=== PATIENT | male | born 1960 | race Caucasian/White ===

== ENCOUNTER 2020-08-28 11:22 | Observation (INO) | payer OTHER ==
[~2020-08-28] VITALS: Ht 180.3 cm; Wt 79.4 kg
[2020-08-28] MEDS ORDERED: ASPIRIN 325 MG TAB PO ONE (12:15)
[2020-08-28] MEDS ORDERED: ASPIRIN 81 MG CHEW TAB PO ONE (12:45)
[2020-08-28] MEDS ORDERED: GLYBURIDE-METF1 EACH PO (13:04)
[2020-08-28] MEDS ORDERED: ROSUVASTATIN CA10 MG PO (13:04)
[2020-08-28] MEDS ORDERED: REXULTI2 MG PO (13:04)
[2020-08-28] MEDS ORDERED: DEXTROAMP-AMPHE30 MG PO (13:04)
[2020-08-28] MEDS ORDERED: FLUOXETINE HCL40 MG PO (13:04)
[2020-08-28] MEDS ORDERED: TESSALON PERLE100 MG PO (13:18)
[2020-08-28] MEDS: FAMOTIDINE 20 MG TAB PO SCH ×2 (14:00→23:30)
[2020-08-28 14:50] VITALS: BP 134/80
[2020-08-28 14:56] VITALS: BP 134/80
[2020-08-28 15:39] LABS: CREATINE KINASE MB 7.3 ng/mL (0-5.0)
[2020-08-28 16:04] VITALS: BP 134/80
[2020-08-28 20:00] VITALS: BP 104/61
[2020-08-28 21:20] VITALS: BP 104/61
[2020-08-28 23:28] LABS: CREATINE KINASE MB 7.6 ng/mL (0-5.0)
[2020-08-29] VITALS (24 sets, daily range): BP systolic 108–139; BP diastolic 65–93
[2020-08-29] MEDS ORDERED: POLYETHYLENE GLYCOL 3350 17 GM PACK PO PRN
[2020-08-29] MEDS ORDERED: MELATONIN 5 MG TABLET PO PRN
[2020-08-29] MEDS ORDERED: ALBUTEROL/IPRATROPIUM 3 ML NEB NEB PRN
[2020-08-29] MEDS ORDERED: GUAIFENESIN/CODEINE 10 ML CUP PO PRN
[2020-08-29] MEDS ORDERED: POTASSIUM CHLORIDE 20 MEQ TAB CR PO PRN
[2020-08-29] MEDS ORDERED: TRAMADOL HCL 50 MG TAB PO PRN
[2020-08-29] MEDS ORDERED: ONDANSETRON HCL INJ 2MG/ML 2ML 2 MG/ML VIAL IV PRN
[2020-08-29] MEDS ORDERED: DOCUSATE SODIUM 100 MG CAP PO PRN
[2020-08-29] MEDS ORDERED: ACETAMINOPHEN 325 MG TAB PO PRN
[2020-08-29] MEDS ORDERED: HYDRALAZINE HCL 20 MG/ML VIAL IV PRN
[2020-08-29 07:04] LABS: BASOPHILS % 0.5 % (0.0-1.0); EOSINOPHILS # (AUTO) 0.1 (0.0-0.4); EOSINOPHILS % 1.5 % (0.0-6.0); HEMATOCRIT 40.4 % (38.2-49.6); HEMOGLOBIN 13.3 g/dL (14.0-18.0); LYMPHOCYTES # (AUTO) 2.1 (1.0-3.2); LYMPHOCYTES % 25.9 % (18.0-39.1); MEAN CORPUSCULAR HEMOGLOBIN 28.9 pg (28-32); MEAN CORPUSCULAR HGB CONC 32.9 g/dL (31-35); MEAN CORPUSCULAR VOLUME 87.8 fL (81-99); MONOCYTES # (AUTO) 0.8 (0.2-0.8); MONOCYTES % 9.6 % (4.4-11.3); NEUTROPHILS % 62.1 % (38.7-80.0); PLATELET COUNT 331 x10e3/uL (140-360); RED CELL DISTRIBUTION WIDTH 13.6 % (11.7-14.4)
[2020-08-29 07:22] LABS: ALANINE AMINOTRANSFERASE 24 IU/L (0-55); ALBUMIN 3.7 g/dL (3.5-5.0); ALBUMIN/GLOBULIN RATIO 1.1 (0.8-2.0); ALKALINE PHOSPHATASE 77 IU/L (40-150); ANION GAP 11.5 mmol/L (8-16); BLOOD UREA NITROGEN 12 mg/dL (7-26); BUN/CREATININE RATIO 14 (6-25); CALCIUM 8.7 mg/dL (8.4-10.2); CARBON DIOXIDE 26 mmol/L (22-29); CHLORIDE 104 mmol/L (98-107); CREATININE, SERUM 0.88 mg/dL (0.72-1.25); EST GLOMERULAR FILTRATION RATE > 60 ML/MIN (60-); GLUCOSE 111 mg/dL (74-118); POTASSIUM 4.5 mmol/L (3.5-5.1); SODIUM 137 mmol/L (136-145)
[2020-08-29 07:48] LABS: CHOL/HDL RATIO 5.2 (3.9-4.7); THYROID STIMULATING HORMONE 0.591 uIU/mL (0.350-4.940)
[2020-08-29] MEDS ORDERED: REGADENOSON 0.4 MG/5 ML SYR IV ONE (08:30)
[2020-08-29] MEDS ORDERED: ASPIRIN 325 MG TAB EC PO SCH ×2 (09:00)
[2020-08-29] MEDS: FLUOXETINE HCL 20 MG CAP PO SCH (09:00)
[2020-08-29] MEDS ORDERED: D AMPHET PO SCH (09:00)
[2020-08-29] MEDS: ASPIRIN 81 MG ENTERIC COATED PO SCH (09:00)
[2020-08-29] MEDS ORDERED: AMPHET ASP PO SCH (09:00)
[2020-08-29] MEDS ORDERED: AMPHET PO SCH (09:00)
[2020-08-29] MEDS ORDERED: [UNRECOGNIZED DRUG - OTHER] PO SCH (09:00)
[2020-08-29] MEDS ORDERED: MIDAZOLAM HCL 2 MG/2 ML VIAL ONE (11:22)
[2020-08-29] MEDS ORDERED: HEPARIN SOD/SOD CHLORIDE 2,000 ML ONE (11:23)
[2020-08-29] MEDS ORDERED: SODIUM CHLORIDE 0.9% 1000ML 1,000 ML ONE (11:23)
[2020-08-29] MEDS ORDERED: IOPAMIDOL 370 MG/ML 200 ML INFUS..BTL INJ ONE ×2 (11:23→15:07)
[2020-08-29] MEDS ORDERED: LIDOCAINE HCL 2% LOCAL 20 ML VIAL ONE (11:23)
[2020-08-29] MEDS ORDERED: FENTANYL CITRATE/PF 100MCG/2 ML INJ ONE (11:23)
[2020-08-29] MEDS: FAMOTIDINE 20 MG TAB PO SCH ×2 (12:45→23:35)
[2020-08-29] MEDS ORDERED: DEXTROSE 50% SYRINGE 50 ML IV PRN ×2 (13:15)
[2020-08-29] MEDS ORDERED: TICAGRELOR 90 MG TABLET ONE (15:41)
[2020-08-29] MEDS ORDERED: ASPIRIN 325 MG TAB ONE (15:41)
[2020-08-29] MEDS: INSULIN LISPRO 100 UNIT/1 ML 3ML VIAL SQ SCH ×2 (16:30→20:48)
[2020-08-29] MEDS ORDERED: ENOXAPARIN SOD INJ 40 MG/0.4 ML SYR SC SCH (17:00)
[2020-08-29] MEDS ORDERED: CRESTOR 10MG PO SCH ×2 (21:00)
[2020-08-29] MEDS ORDERED: BREXPIPRAZOLE 2 MG PO SCH (21:00)
[2020-08-30] VITALS (8 sets, daily range): BP systolic 99–131; BP diastolic 49–78
[2020-08-30 05:40] LABS: BASOPHILS % 0.4 % (0.0-1.0); EOSINOPHILS # (AUTO) 0.1 (0.0-0.4); EOSINOPHILS % 1.1 % (0.0-6.0); HEMATOCRIT 37.6 % (38.2-49.6); HEMOGLOBIN 12.6 g/dL (14.0-18.0); LYMPHOCYTES # (AUTO) 1.8 (1.0-3.2); LYMPHOCYTES % 21.7 % (18.0-39.1); MEAN CORPUSCULAR HEMOGLOBIN 29.3 pg (28-32); MEAN CORPUSCULAR HGB CONC 33.5 g/dL (31-35); MEAN CORPUSCULAR VOLUME 87.4 fL (81-99); MONOCYTES # (AUTO) 0.9 (0.2-0.8); MONOCYTES % 10.4 % (4.4-11.3); NEUTROPHILS # (AUTO) 5.6 (2.1-6.9); NEUTROPHILS % 66.2 % (38.7-80.0); PLATELET COUNT 325 x10e3/uL (140-360); RED CELL DISTRIBUTION WIDTH 13.4 % (11.7-14.4)
[2020-08-30 06:01] LABS: ALANINE AMINOTRANSFERASE 22 IU/L (0-55); ALBUMIN 3.5 g/dL (3.5-5.0); ALBUMIN/GLOBULIN RATIO 1.1 (0.8-2.0); ALKALINE PHOSPHATASE 82 IU/L (40-150); ANION GAP 11.4 mmol/L (8-16); BLOOD UREA NITROGEN 13 mg/dL (7-26); BUN/CREATININE RATIO 16 (6-25); CALCIUM 8.4 mg/dL (8.4-10.2); CARBON DIOXIDE 25 mmol/L (22-29); CHLORIDE 105 mmol/L (98-107); CREATININE, SERUM 0.83 mg/dL (0.72-1.25); EST GLOMERULAR FILTRATION RATE > 60 ML/MIN (60-); GLUCOSE 105 mg/dL (74-118); POTASSIUM 4.4 mmol/L (3.5-5.1); SODIUM 137 mmol/L (136-145)
[2020-08-30] MEDS: INSULIN LISPRO 100 UNIT/1 ML 3ML VIAL SQ SCH ×2 (08:00→12:24)
[2020-08-30] MEDS: ASPIRIN 81 MG ENTERIC COATED PO SCH (08:29)
[2020-08-30] MEDS: FLUOXETINE HCL 20 MG CAP PO SCH (08:38)
[2020-08-30] MEDS ORDERED: TICAGRELOR 90 MG TABLET PO SCH (09:00)
[2020-08-30] MEDS: FAMOTIDINE 20 MG TAB PO SCH (12:25)
== END 2020-08-30 16:49 | disposition home or self-care (01) ==
LOC: FSED 11:35 → ERHOLD 12:37 → MED/SURG2 13:50
PROVIDERS: ADMIT Internal Medicine; ATTEND Internal Medicine
DX: I21.4 Non-ST elevation (NSTEMI) myocardial infarction (principal); I48.91 Unspecified atrial fibrillation; E11.9 Type 2 diabetes mellitus without complications; E78.5 Hyperlipidemia, unspecified; Z01.812 Encounter for preprocedural laboratory examination; Z87.891 Personal history of nicotine dependence; Z20.828 Contact with and (suspected) exposure to other viral communicable diseases; F90.9 Attention-deficit hyperactivity disorder, unspecified type; F41.8 Other specified anxiety disorders; I25.10 Atherosclerotic heart disease of native coronary artery without angina pectoris; Z79.84 Long term (current) use of oral hypoglycemic drugs
CPT/HCPCS: 36415 ×3; 71260; 80053 ×3; 80061; 82550 ×2; 82553 ×2; 82948 ×2; 83036; 83735; 84443; 84484 ×2; 85025 ×3; 92921; 92928 ×2; 93005; 93306; 93458; 97116; 97139; 97161; 99284; C1725 ×5; C1769 ×2; C1874; G0378 ×3; J2001; J2250; J3010; J7030; Q9967; U0002; 92929; 99152; 99153; J1650